=== PATIENT | female | born 1955 | race Caucasian/White ===

== ENCOUNTER → 2018-09-18 | Outpatient (CLI) | payer OTHER ==
[2018-09-18 18:21] LABS: AMORPHOUS SEDIMENT SMALL (NEGATIVE); APPEARANCE, URINE HAZY (CLEAR); BACTERIA, URINE AUTO NEGATIVE (NEGATIVE); BILIRUBIN, URINE AUTO NEGATIVE (NEGATIVE); BLOOD, URINE BLOOD 1+ (NEGATIVE); COLOR, URINE YELLOW (YELLOW); GLUCOSE, URINE (UA) AUTO 2+ mg/dL (NEGATIVE); KETONE, URINE AUTO NEGATIVE (NEGATIVE); LEUKOCYTE ESTERASE, URINE AUTO NEGATIVE (NEGATIVE); MUCUS, URINE SMALL (NEGATIVE); NITRITE, URINE AUTO NEGATIVE (NEGATIVE); PROTEIN, URINE AUTO 3+ mg/dL (NEGATIVE); RBC, URINE AUTO 1 /HPF (0-3); SPECIFIC GRAVITY URINE AUTO 1.012 (1.002-1.035); SQUAMOUS EPITHELIAL CELL UR AU 2 /HPF (0-6); UROBILINOGEN, URINE AUTO 0.2 mg/dL (0.0-2.0); WBC, URINE AUTO 3 /HPF (0-3)
[2018-09-18 18:38] LABS: ALBUMIN 2.1 GM/DL (3.2-5.2); BILIRUBIN,TOTAL 0.3 MG/DL (0.2-1.0); CALCIUM LEVEL 8.2 MG/DL (8.8-10.2); CHOLESTEROL RISK RATIO 5.791 (<5); CREATININE FOR GFR 3.44 MG/DL (0.55-1.30); GLOMERULAR FILTRATION RATE 14.3 (>45); MAGNESIUM LEVEL 1.6 MG/DL (1.8-2.4); POTASSIUM SERUM 4.8 MEQ/L (3.5-5.1); THYROID STIMULATING HORMONE 4.45 uIU/ML (0.358-3.740); TOTAL PROTEIN 5.8 GM/DL (6.4-8.2)
[2018-09-18 19:11] LABS: HEMOGLOBIN A1c 7.9 %
[2018-09-18 19:15] LABS: CREATININE, URINE 74.9 MG/DL; MAU/CREAT RATIO 7116.1 MCG/MG (0.0-30.0)
== END ==
LOC: M ADAMS 10:10
PROVIDERS: ATTEND Physician Assistant
DX: I10 Essential (primary) hypertension (principal); E78.2 Mixed hyperlipidemia; E11.9 Type 2 diabetes mellitus without complications; K21.9 Gastro-esophageal reflux disease without esophagitis; E03.9 Hypothyroidism, unspecified; N18.5 Chronic kidney disease, stage 5

== ENCOUNTER → 2018-12-07 | Outpatient (REF) | payer OTHER ==
[2018-12-08 10:25] LABS: HEPATITIS B CORE ANTIBODY IGM NEGATIVE (NEGATIVE); HEPATITIS B SURFACE ANTIBODY NEGATIVE (POSITIVE); HEPATITIS B SURFACE ANTIGEN NEGATIVE (NEGATIVE); HEPATITIS C VIRUS ABY INDEX < 0.0 INDEX (<0.8)
== END ==
LOC: M LAB REF 12:52
PROVIDERS: ATTEND Internal Medicine Nephrology
DX: N18.6 End stage renal disease (principal)

== ENCOUNTER → 2019-01-03 | Outpatient (REF) | payer OTHER ==
[~2019-01-03] MED LIST: AMLO5TAB6 PO; CALC1CAP31 PO; EZET10TA21 PO; LEVO50TA5 PO; MAGN500T12 PO; METO1TAB7 PO; PANT40TA3 PO; PIOG1TAB36 PO
[2019-01-03 13:25] LABS: HEMOGLOBIN A1c 6.9 %
[2019-01-03 13:29] LABS: ALBUMIN 2.5 GM/DL (3.2-5.2); BILIRUBIN,TOTAL 0.3 MG/DL (0.2-1.0); CALCIUM LEVEL 8.3 MG/DL (8.8-10.2); CHOLESTEROL RISK RATIO 4.98 (<5); CREATININE FOR GFR 4.04 MG/DL (0.55-1.30); GLOMERULAR FILTRATION RATE 11.9 (>45); POTASSIUM SERUM 4.7 MEQ/L (3.5-5.1); THYROID STIMULATING HORMONE 2.76 uIU/ML (0.358-3.740)
== END ==
LOC: M SFHCADAM 09:06
PROVIDERS: ATTEND Physician Assistant
DX: I10 Essential (primary) hypertension (principal); E11.9 Type 2 diabetes mellitus without complications; E78.2 Mixed hyperlipidemia; E03.9 Hypothyroidism, unspecified

== ENCOUNTER 2019-01-21 12:09 | Day surgery (SDC) | payer OTHER ==
[~2019-01-21] VITALS: Ht 162.6 cm; Wt 88.4 kg
[~2019-01-21 12:09] MED LIST changes: +LIDOCAINE 1% MDV 20ML VIAL SQ PRN; +LR 1,000 ML IV ONE
[2019-01-21] MEDS ORDERED: PROPOFOL 200 MG/20 ML VIAL As Ordered ONE (14:33)
[2019-01-21] MEDS ORDERED: ONDANSETRON 4MG/2ML VIAL (J2405) As Ordered ONE (14:33)
[2019-01-21] MEDS ORDERED: LIDOCAINE 2% INJ 100 MG/5 ML SDV (FOR ANES.) As Ordered ONE (14:33)
[2019-01-21] MEDS ORDERED: dexameTHASONE 4 MG/ML 1ML VIAL (J1100) As Ordered ONE (14:33)
[2019-01-21] MEDS ORDERED: ROCURONIUM BROMIDE 50 MG/5 ML VIAL As Ordered ONE (14:33)
[2019-01-21] MEDS ORDERED: MIDAZOLAM INJ 2 MG/2 ML VIAL (J2250) As Ordered ONE (14:34)
[2019-01-21] MEDS ORDERED: fentaNYL 100 MCG/2 ML INJECTION (J3010) As Ordered ONE (14:34)
[2019-01-21] MEDS ORDERED: BUPIVACAINE HCL 0.5% 30 ML VIAL As Ordered ONE (14:58)
[2019-01-21] MEDS ORDERED: LIDOCAINE 1% SDV INJ 30 ML VIAL As Ordered ONE (14:58)
[2019-01-21] MEDS ORDERED: NS 1,000 ML IV SCH (15:00)
[2019-01-21] MEDS ORDERED: GLYCOPYRROLATE INJ 0.2 MG/ML 2 ML VIAL As Ordered ONE (15:52)
[2019-01-21] MEDS ORDERED: NEOSTIGMINE 10 MG/10 ML VIAL (J2710) As Ordered ONE (15:52)
[2019-01-21] MEDS ORDERED: KETOROLAC 60 MG/2 ML VIAL (J1885) As Ordered ONE (16:10)
[2019-01-21] MEDS ORDERED: oxyCODONE 5MG TAB PO PRN (17:00)
[2019-01-21] MEDS ORDERED: PERCOCET 5MG/325MG TAB PO PRN (17:00)
[2019-01-21] MEDS ORDERED: ONDANSETRON 4MG/2ML VIAL (J2405) IV PRN (17:00)
[2019-01-21] MEDS ORDERED: HYDROMORPHONE HCL 0.5 MG/ 0.5 ML SYRINGE (J1170 PER 1) IV PRN (17:00)
[2019-01-21] MEDS ORDERED: fentaNYL 100 MCG/2 ML INJECTION (J3010) IV PRN (17:00)
[2019-01-21 18:45] VITALS: BP 169/93
--- NOTE | 2019-02-03 21:18 | RO ---
DATE OF PROCEDURE: 01/21/2019 PREOPERATIVE DIAGNOSIS: Chronic renal insufficiency nearing end-stage renal disease. POSTOPERATIVE DIAGNOSES: Chronic renal insufficiency nearing end-stage renal disease. PROCEDURE: Laparoscopic peritoneal dialysis catheter placement, laparoscopic lysis of adhesions. SURGEON: Dr. Luisana Vivas CLINICAL MEDICAL ASSISTANT: None. INDICATION: The patient is a 63-year-old female who is approaching the need for dialysis and will undergo placement of a peritoneal dialysis catheter. Risks, benefits and alternative treatment options were discussed with the patient. ANESTHESIA: General endotracheal ESTIMATED BLOOD LOSS: 35 mL. IV FLUIDS: 600 mL. HEPARIN: None. PROTAMINE: None. COMPLICATIONS: None. DRAINS: None. SPECIMENS: None. IMPLANTS: 62 cm curl tail peritoneal dialysis catheter placed in the abdominal cavity. DESCRIPTION OF PROCEDURE: The patient was taken to the operating room, placed supine on the operating room table and then prepped and draped in a standard surgical fashion. 5 mm port was placed in left upper quadrant using the laparoscope and the Visiport. The peritoneal dialysis catheter was inserted through a puncture wound in the infraumbilical region after adhesions were taken down sharply. Catheter was placed in the pelvis and tunneled to the exit site in the left upper quadrant. The abdomen was desufflated, and the peritoneal dialysis catheter was used to instill 1 liter of saline, which returned easily on egress. The ports were removed and puncture wounds closed with #3-0 Monocryl in inverted interrupted fashion. Steri-Strips and dressings were applied. The patient tolerated the procedure well. All instrument, sponge and needle counts were correct at the end of the case. There were no complications. Dr. Vivas was present for and directed the entire case. The patient was transferred to the recovery room awake, alert, extubated and in stable condition
== END 2019-01-21 18:55 | disposition home or self-care (01) ==
LOC: M SDC 12:09
PROVIDERS: ATTEND Surgery Vascular Surgery
DX: N18.5 Chronic kidney disease, stage 5 (principal); K66.0 Peritoneal adhesions (postprocedural) (postinfection); I15.0 Renovascular hypertension; E78.00 Pure hypercholesterolemia, unspecified; E11.22 Type 2 diabetes mellitus with diabetic chronic kidney disease; E83.42 Hypomagnesemia; E78.2 Mixed hyperlipidemia; E03.9 Hypothyroidism, unspecified; M12.9 Arthropathy, unspecified; I69.998 Other sequelae following unspecified cerebrovascular disease; J30.89 Other allergic rhinitis; Z88.2 Allergy status to sulfonamides; Z88.6 Allergy status to analgesic agent; Z88.7 Allergy status to serum and vaccine; Z91.010 Allergy to peanuts; Z91.012 Allergy to eggs; Z91.030 Bee allergy status; Z91.013 Allergy to seafood; Z91.041 Radiographic dye allergy status; Z79.899 Other long term (current) drug therapy; Z90.710 Acquired absence of both cervix and uterus; Z98.51 Tubal ligation status
CPT/HCPCS: 36415; 49324; 84132; J1100; J1885; J2250; J2405; J2710; J3010

== ENCOUNTER → 2019-02-02 | Outpatient (REF) | payer OTHER ==
[~2019-02-02] MED LIST changes: -LIDOCAINE 1% MDV 20ML VIAL SQ PRN; -LR 1,000 ML IV ONE
[2019-02-04 11:52] LABS: HEPATITIS B CORE ANTIBODY IGM NEGATIVE (NEGATIVE); HEPATITIS B SURFACE ANTIBODY NEGATIVE (POSITIVE); HEPATITIS B SURFACE ANTIGEN NEGATIVE (NEGATIVE); HEPATITIS C VIRUS ABY INDEX 0.1 INDEX (<0.8)
== END ==
LOC: M LAB REF 17:15
PROVIDERS: ATTEND Internal Medicine Nephrology
DX: N18.6 End stage renal disease (principal)

== ENCOUNTER → 2019-02-24 | Outpatient (CLI) | payer OTHER ==
--- NOTE | 2019-02-24 13:21 | REP ---
Clinical: inconclusive TB test. Comparison: none. Technique: PA and lateral. Findings: The mediastinum and cardiac silhouette are normal. The lung miramontes are clear and without acute consolidation, effusion, or pneumothorax. The skeletal structures are intact and normal. Impression: 1. No acute cardiopulmonary process. Electronically Signed by Bradley Agrawal MD 02/24/2019 01:13 P
== END ==
LOC: M SMT 13:02
PROVIDERS: ATTEND Internal Medicine Nephrology
DX: R76.11 Nonspecific reaction to tuberculin skin test without active tuberculosis (principal)

== ENCOUNTER → 2019-04-05 | Outpatient (CLI) | payer MEDICARE ==
--- NOTE | 2019-04-05 16:17 | REP ---
Two-view chest: 04/05/2019. Indication: Dyspnea. Comparison: 02/24/2019. Findings: There is a tiny pneumoperitoneum noted along the diaphragms bilaterally. The lungs are clear. No significant pleural fluid or pneumothorax are present. Cardiac silhouette is within normal limits. Impression: Tiny pneumoperitoneum under the diaphragms bilaterally. No acute cardiopulmonary process. Findings conveyed to Dr. Kowalski at time of dictation. Electronically Signed by Dharmesh Rios DO 04/05/2019 04:09 P
== END ==
LOC: M SMT 11:12
PROVIDERS: ATTEND Internal Medicine Nephrology
DX: R07.89 Other chest pain (principal); Z99.2 Dependence on renal dialysis

== ENCOUNTER → 2019-12-04 | Outpatient (CLI) | payer MEDICARE ==
[~2019-12-04] MED LIST changes: +AURY1TAB PO; +DIAL3000 PO; +DIPH25CA32 PO; +LOSA100T50 PO; +MUPI2OI EXT; +NOXI1TAB PO; +OXYC1TAB23 PO; +REPA140I2 SC
== END ==
LOC: M LABSMTC 08:58
PROVIDERS: ATTEND Anesthesiology
DX: Z03.818 Encounter for observation for suspected exposure to other biological agents ruled out (principal); Z11.59 Encounter for screening for other viral diseases
CPT/HCPCS: C9803; U0003

== ENCOUNTER 2019-12-07 09:55 | Day surgery (SDC) | payer MEDICARE ==
[~2019-12-07] VITALS: Ht 162.6 cm; Wt 96.3 kg
[~2019-12-07 09:55] MED LIST changes: +D5W/0.2% SODIUM CHLORIDE 1,000 ML IV ONE; +LIDOCAINE PRES-FREE 2% 10ML AMP As Ordered ONE; +MIDAZOLAM INJ 2MG/2ML VIAL (J2250 PER 1MG) As Ordered ONE; +ONDANSETRON 4MG/2ML VIAL As Ordered ONE; -OXYC1TAB23 PO; +ceFAZolin SOD 2 GM in IV 1 EA IV ONE; +dexameTHASONE 4 MG/ML 1ML VIAL (J1100 PER 1MG) As Ordered ONE; +fentaNYL 100 MCG/2 ML INJECTION (J3010) As Ordered ONE; +propofoL 200 MG/20 ML VIAL As Ordered ONE
[2019-12-07] MEDS ORDERED: LIDOCAINE 2% MDV 20ML VIAL ONE (09:56)
[2019-12-07] MEDS ORDERED: ROPIvacaine 0.5% 30ML INJECTION (J2795 PER 1MG) ONE (09:56)
[2019-12-07 10:45] LABS: CALCIUM LEVEL 8.5 MG/DL (8.8-10.2); CREATININE FOR GFR 6.69 MG/DL (0.55-1.30); GLOMERULAR FILTRATION RATE 6.6 (>45); POTASSIUM SERUM 5.6 MEQ/L (3.5-5.1)
[2019-12-07] MEDS ORDERED: LIDOCAINE 1% SDV 30ML VIAL As Ordered ONE (11:19)
[2019-12-07] MEDS ORDERED: BUPIVACAINE/EPIN 0.5% 30 ML VIAL As Ordered ONE (11:20)
[2019-12-07] MEDS ORDERED: ISOVUE-300 61% 50ML VIAL As Ordered ONE (11:20)
[2019-12-07] MEDS ORDERED: HEPARIN SOD (PORCINE) 5000UNITS/ML VIAL (J1644 PER 1000UNITS) As Ordered ONE (11:20)
[2019-12-07] MEDS ORDERED: MIDAZOLAM INJ 2MG/2ML VIAL (J2250 PER 1MG) As Ordered ONE (12:02)
[2019-12-07] MEDS ORDERED: fentaNYL 100 MCG/2 ML INJECTION (J3010) As Ordered ONE (12:02)
[2019-12-07] MEDS ORDERED: LIDOCAINE PRES-FREE 2% 10ML AMP As Ordered ONE (12:02)
[2019-12-07] MEDS ORDERED: MIDAZOLAM INJ 2MG/2ML VIAL (J2250 PER 1MG) IV ONE (12:30)
[2019-12-07] MEDS ORDERED: fentaNYL 100 MCG/2 ML INJECTION (J3010) IV ONE (12:30)
[2019-12-07] MEDS ORDERED: OXYC1TAB23 PO (14:20)
[2019-12-07 14:35] VITALS: BP 146/74
--- NOTE | 2019-12-07 15:04 | ROOPDOC ---
[facility] Report Of Operation Report of Operation DATE OF PROCEDURE: 12/07/19 PREPROCEDURE DIAGNOSES: End-stage renal disease on hemodialysis requiring access for dialysis POSTPROCEDURE DIAGNOSES: Same PROCEDURE: Left brachiocephalic AV fistula creation SURGEON: Enrike Dumont MD ANESTHESIA: Monitored anesthesia care, scalene nerve block, and local anesthesia INDICATION FOR PROCEDURE: This is a very pleasant 64-year-old patient with end- stage renal disease currently dialyzing with a PermCath. We have reviewed her vein mapping and she is a suitable candidate for a brachiocephalic AV fistula creation. Risks benefits and alternatives were explained to the patient and she is agreeable to proceed. Informed consent was obtained. REPORT OF OPERATION: The patient was brought to the operating room in stable condition after a left scalene nerve block was placed by our anesthesia colleagues in preop holding. Monitored anesthesia care and antibiotics were administered without complication. Her left upper extremity was prepped and draped in a sterile fashion. A timeout was performed. Local anesthesia was miguel a cristian her to the skin and subcutaneous tissue over the cephalic vein and the brachial artery pulse. A transverse incision was made 1 cm distal to the antecubital crease over the cephalic vein and brachial artery. This was carried down through subcutaneous tissue with Bovie cautery. The basilic and cephalic veins were encountered. These were skeletonized proximally and distally within the incision. Multiple deep branches were suture ligated and divided. We then dissected down to the brachial artery. Vesseloops replace proximally and distally. 2 distal branch points of the vein were transected and connected with a pot scissors to make a larger patch for anastomosis. We then passed serial dilators to the veins, 3 mm, 3.5 mm, 4 mm sequentially and the dilators passed easily. We flushed the vein with heparinized saline. Next, we secured the Vesseloops and didn't end-to-side anastomosis with 6-0 Prolene. Before the final sutures were placed, we flushed the inflow and outflow of the artery and flushed the vein. The anastomosis was irrigated with heparinized saline and the final sutures were placed. Flow was restored through the vein and the inflow artery first, then flow restored to the hand. She had a palpable radial and ulnar pulse. Her hand was warm and well-perfused. We irrigated with copious amounts of saline. The deep tissues were approximated with interrupted 2-0 Vicryl sutures. The superficial tissue and fascia were closed with a running 4-0 Vicryl suture. Interrupted 4-0 Vicryl deep dermal sutures were placed to approximate the skin edges and the skin was closed with a running subcuticular Monocryl suture. The incision was clean and dry. Mastisol and Steri-Strips were placed the length of the incision. 2 x 2 gauze and Tegaderm were placed over the Steri-Strips as a final dressing. A sling was placed to protect the arm until the nerve block resolves. The patient was allowed to awaken from anesthesia and was taken to recovery in stable condition. She tolerated the procedure well. ESTIMATED BLOOD LOSS: Approximately 20 mL. COMPLICATIONS: None. PLAN: Continue use PermCath for dialysis. We'll see the patient back in a week to check her incision and fistula. No lifting greater than 5 pounds or strenuous exercise until the incision is healed. Continue squeeze ball to help with maturation of the fistula. Okay to remove the sling from the left upper extremity once motor and sensory function returned to baseline. Okay for ice to the fistula for comfort if desired. Prescription for Percocet given. We appreciate the opportunity to participate in the care of this patient. ENRIKE DUMONT MD Dec 07, 2019 15:04
== END 2019-12-07 14:49 | disposition home or self-care (01) ==
LOC: M SDC 09:55
PROVIDERS: ATTEND Surgery Vascular Surgery
DX: N18.6 End stage renal disease (principal); E11.22 Type 2 diabetes mellitus with diabetic chronic kidney disease; I12.0 Hypertensive chronic kidney disease with stage 5 chronic kidney disease or end stage renal disease; I25.2 Old myocardial infarction; E03.9 Hypothyroidism, unspecified; E78.2 Mixed hyperlipidemia; E21.3 Hyperparathyroidism, unspecified; D63.1 Anemia in chronic kidney disease; M10.9 Gout, unspecified; K21.9 Gastro-esophageal reflux disease without esophagitis; M17.0 Bilateral primary osteoarthritis of knee; I69.998 Other sequelae following unspecified cerebrovascular disease; E66.9 Obesity, unspecified; Z79.899 Other long term (current) drug therapy; Z88.2 Allergy status to sulfonamides; Z88.7 Allergy status to serum and vaccine; Z88.6 Allergy status to analgesic agent; Z90.710 Acquired absence of both cervix and uterus; Z91.010 Allergy to peanuts; Z91.012 Allergy to eggs; Z91.013 Allergy to seafood; Z91.030 Bee allergy status; Z91.041 Radiographic dye allergy status; Z95.828 Presence of other vascular implants and grafts; Z98.51 Tubal ligation status; Z99.2 Dependence on renal dialysis
CPT/HCPCS: 36415; 36821; 64415; 80048; J0690; J1100; J1644; J2250; J2405; J2795; J3010

== ENCOUNTER → 2020-03-06 | Outpatient (CLI) | payer MEDICARE ==
[~2020-03-06] MED LIST changes: +AMLO1TAB24 PO; -AMLO5TAB6 PO; -D5W/0.2% SODIUM CHLORIDE 1,000 ML IV ONE; +ISOVUE-300 61% 50ML VIAL As Ordered ONE; +LIDOCAINE 1% MDV 20ML VIAL As Ordered ONE; -LIDOCAINE PRES-FREE 2% 10ML AMP As Ordered ONE; -ONDANSETRON 4MG/2ML VIAL As Ordered ONE; +OXYC1TAB23 PO; +PANT40TA29 PO; -PANT40TA3 PO; +RENV2TAB; +SEVE800T3; -ceFAZolin SOD 2 GM in IV 1 EA IV ONE; -dexameTHASONE 4 MG/ML 1ML VIAL (J1100 PER 1MG) As Ordered ONE; -propofoL 200 MG/20 ML VIAL As Ordered ONE
--- NOTE | 2020-03-06 14:48 | ROOPDOC ---
[facility] Report Of Operation Report of Operation DATE OF PROCEDURE: 03/06/20 PREPROCEDURE DIAGNOSES: End-stage renal disease with poor maturation left upper extremity brachiocephalic AV fistula POSTPROCEDURE DIAGNOSES: Same PROCEDURE: 1. Ultrasound-guided retrograde access left cephalic vein 2. Retrograde left upper extremity fistulogram 3. Coil large retrograde branch cephalic vein near AV anastomosis with 2 (8 mm) tornado coils 4. Ultrasound-guided antegrade access left cephalic vein 5. Antegrade fistulogram left upper extremity with central venogram 6. Angioplasty left cephalic vein with 7 x 200 Viborg balloon 7. Completion venogram SURGEON: Starr Dumont MD ANESTHESIA: Local anesthesia 6 mL lidocaine. Moderate intravenous conscious sedation was ministered by Dr. Dumont. The patient was in abundantly monitored by registered nurse assigned to the Department of radiology using automated blood pressure, EKG, pulse oximetry. The details sedation record is permanently stored in the hospital information system. The following is a brief sedation record: Start time 13:05, stop time 14:26, Versed 2 mg IV, fentanyl 75 g IV. CONTRAST: 38 mL Isovue-300 INDICATION FOR PROCEDURE: This is a very pleasant 64 year old patient with end- stage renal disease currently dialyzing with a right IJ PermCath who has poor maturation of her left brachiocephalic AV fistula. Risks benefits and alternatives to fistulogram potential intervention were explained to the patient she is agreeable to proceed. Informed consent was obtained. INTERPRETATION: 1. On ultrasound, the AV anastomosis is widely patent with excellent flow. 2. Fistulogram and central venogram reveal a large branch proximal to the AV anastomosis off of the cephalic vein steeling considerable blood from the fistula. Proximal to this over the biceps and towards the shoulder, the vein is somewhat small, but uniform and straight and likely underdeveloped due to the steeling from the branch. The central veins are widely patent. 3. After coiling the large cephalic branch, there was an improvement inflow through the AV fistula and an improvement in thrill. Scant residual blood was flowing through the branch, and this will resolve with a bit of time. No extravasation or embolization were noted. 4. After angioplasty the cephalic vein, there was widely patent flow with no extravasation noted. There is a marked improvement in thrill over all. REPORT OF OPERATION: Patient was brought the angiographic suite in stable condition her left upper extremity was prepped and draped in a sterile fashion. A timeout was performed. Local anesthesia was ministered to skin and subc utaneous tissue over the left cephalic vein near the AV anastomosis. Ultrasound was used to examine the AV anastomosis was noted to be widely patent. Ultrasound also noted a large branch flowing retrograde near the AV anastomosis that when compressed, dramatically improved to thrill in the fistula confirming that the branch was significantly steeling blood from the fistula. We then used ultrasound to gain retrograde access on the cephalic vein over the bicep after anesthetizing with local anesthesia. A microneedle was used to access the vein and a wire was passed through this access towards the AV anastomosis under ultrasound guidance. Needle was removed and a 4 Romansh sheath was placed and flushed with saline. Through this access, we navigated a Glidewire and a glide cath into the large branch. The sheath was then advanced into the origin of the branch. We deployed to 8 mm coils, and following this there was no significant residuals backflow through the branch. We then placed a suture at the sheath site and secured this in sterile dressings were applied. Pressure was held for 2 minutes for good hemostasis. We then used ultrasound again antegrade access near the AV anastomosis. After local anesthesia, microneedle was used to access the cephalic vein and a wire was passed through this access proximally towards the shoulder under fluoroscopic and ultrasound guidance. We then placed a 4 Romansh sheath and flushed sheath with saline. Another fistulogram was performed. Angioplasty was performed along the cephalic vein over the bicep with a 7 x 200 Viborg balloon. Following a three-minute inflations, there was a widely patent inflow through the fistula with a marked improvement in thrill. No pulsatility was noted. We are very pleased with the improvement. No extravasation was noted. We then placed a stitch at the sheath site and the sheath was removed. Pressure was held for hemostasis and sterile dressings were applied. The patient was then taken to recovery in stable condition. She tolerated the procedure and the swapnil tion well. ESTIMATED BLOOD LOSS: Approximately 3 mL. COMPLICATIONS: None. PLAN: We will continue use the PermCath for dialysis at this time I will see the patient back in a week or 2 to check her fistula. She should continue to use her squeeze ball for maturation. Would like the fistula to continue to mature after this procedure. Once we're satisfied with the maturation, we will marked the fistula in the skin and okay for use. This is not suitable for use at this time. Hopefully after this procedure it will be significantly improved however. We appreciate the opportunity to participate in the care of this patient. STARR DUMONT MD Mar 06, 2020 14:48
[2020-03-06 15:35] VITALS: BP 178/79
== END ==
LOC: M IRPRO 11:18
PROVIDERS: ATTEND Surgery Vascular Surgery
DX: T82.590A Other mechanical complication of surgically created arteriovenous fistula, initial encounter (principal); N18.6 End stage renal disease; X58.XXXA Exposure to other specified factors, initial encounter
CPT/HCPCS: 36904; 99152; 99153; C1725; C1769; C1887; C1894; J1644; J2250; J3010; Q9967

== ENCOUNTER 2020-05-07 14:09 | Emergency (ER) | payer MEDICARE ==
[~2020-05-07] VITALS: Ht 162.6 cm; Wt 90.5 kg
[~2020-05-07 14:09] MED LIST changes: -ISOVUE-300 61% 50ML VIAL As Ordered ONE; -LIDOCAINE 1% MDV 20ML VIAL As Ordered ONE; -MIDAZOLAM INJ 2MG/2ML VIAL (J2250 PER 1MG) As Ordered ONE; -fentaNYL 100 MCG/2 ML INJECTION (J3010) As Ordered ONE
[2020-05-07] MEDS ORDERED: predniSONE 20 MG TAB PO ONE (16:15)
[2020-05-07 16:19] LABS: HEMATOCRIT 35.1 % (36.0-47.0); MEAN CORPUSCULAR HEMOGLOBIN 26.7 pg (27.0-33.0); MEAN CORPUSCULAR HGB CONC 31.3 g/dl (32.0-36.5); MEAN CORPUSCULAR VOLUME 85.2 fl (80.0-96.0); PLATELET COUNT, AUTOMATED 324 10^3/uL (150-450); RED BLOOD COUNT 4.12 10^6/uL (4.00-5.40); WHITE BLOOD COUNT 9.6 10^3/uL (4.0-10.0)
--- NOTE | 2020-05-07 16:35 | REP ---
INDICATION: pain. COMPARISON: None. TECHNIQUE: Four views FINDINGS: There is asymmetric intra digital joint space narrowing which is moderate. There is mild to moderate marginal osteophytosis involving all intra digital joints. There are no marginal erosions. There is no little periarticular osteopenia. The exam is limited by superimposition of the digital structures on both the lateral and internal oblique views. There is no evidence of an acute fracture. IMPRESSION: Chronic changes and limitations as described above. <Electronically signed by George Oneal > 05/07/20 [id number]
[2020-05-07 16:47] LABS: CALCIUM LEVEL 8.3 MG/DL (8.8-10.2); CREATININE FOR GFR 9.53 MG/DL (0.55-1.30); GLOMERULAR FILTRATION RATE 4.4 (>45); POTASSIUM SERUM 3.9 MEQ/L (3.5-5.1); URIC ACID 7.1 MG/DL (2.6-6.0)
[2020-05-07] MEDS ORDERED: PRED10TA2 PO (16:55)
[2020-05-07 17:26] VITALS: BP 177/92
== END 2020-05-07 17:27 | disposition home or self-care (01) ==
LOC: M ED 14:09
DX: M10.042 Idiopathic gout, left hand (principal); M25.742 Osteophyte, left hand; I11.9 Hypertensive heart disease without heart failure; K21.9 Gastro-esophageal reflux disease without esophagitis; Z88.2 Allergy status to sulfonamides; Z91.041 Radiographic dye allergy status; Z88.7 Allergy status to serum and vaccine; Z91.030 Bee allergy status; Z91.012 Allergy to eggs; Z91.013 Allergy to seafood; Z79.899 Other long term (current) drug therapy

== ENCOUNTER → 2020-05-14 | Outpatient (REF) | payer MEDICARE ==
[~2020-05-14] MED LIST changes: +PRED10TA2 PO
== END ==
LOC: M LAB REF 14:05
PROVIDERS: ATTEND Physician Assistant
DX: L72.9 Follicular cyst of the skin and subcutaneous tissue, unspecified (principal)